=== PATIENT | male | born 1945 | race Caucasian/White ===

== ENCOUNTER → 2017-08-05 | Outpatient (CLI) | payer MEDICARE | END | disposition home or self-care (01) | LOC: PCVCCLINIC 13:33 | DX: I42.9 Cardiomyopathy, unspecified (principal); I48.0 Paroxysmal atrial fibrillation; I10 Essential (primary) hypertension; R60.9 Edema, unspecified; R94.31 Abnormal electrocardiogram [ECG] [EKG]; Z79.899 Other long term (current) drug therapy; Z79.4 Long term (current) use of insulin; Z87.891 Personal history of nicotine dependence | CPT/HCPCS: 36415; 93005; G0463 ==

== ENCOUNTER → 2017-08-14 | Outpatient (CLI) | payer MEDICARE | END | disposition home or self-care (01) | LOC: PCVCCLINIC 14:09 | DX: E11.9 Type 2 diabetes mellitus without complications (principal); Z79.4 Long term (current) use of insulin | CPT/HCPCS: 36415 ==

== ENCOUNTER → 2017-08-26 | Outpatient (CLI) | payer MEDICARE | END | disposition home or self-care (01) | LOC: PCVCCLINIC 10:01 | DX: I48.91 Unspecified atrial fibrillation (principal); E78.00 Pure hypercholesterolemia, unspecified; I42.9 Cardiomyopathy, unspecified; R94.31 Abnormal electrocardiogram [ECG] [EKG]; R60.9 Edema, unspecified; Z79.899 Other long term (current) drug therapy | CPT/HCPCS: 36415; 93005; G0463 ==

== ENCOUNTER → 2017-11-25 | Outpatient (CLI) | payer MEDICARE | END | disposition home or self-care (01) | LOC: PCVCIMAG 10:12 | DX: I48.0 Paroxysmal atrial fibrillation (principal); I42.9 Cardiomyopathy, unspecified; R60.9 Edema, unspecified; I48.91 Unspecified atrial fibrillation; R60.0 Localized edema; Z79.84 Long term (current) use of oral hypoglycemic drugs; Z87.891 Personal history of nicotine dependence | CPT/HCPCS: 93005; 93306; G0463 ==

== ENCOUNTER → 2017-12-02 | Outpatient (CLI) | payer MEDICARE | END | disposition home or self-care (01) | LOC: PCVCCLINIC 10:42 | DX: I48.0 Paroxysmal atrial fibrillation (principal); E11.9 Type 2 diabetes mellitus without complications; E78.00 Pure hypercholesterolemia, unspecified | CPT/HCPCS: 36415 ==

== ENCOUNTER → 2017-12-05 | Outpatient (CLI) | payer MEDICARE | END | disposition home or self-care (01) | LOC: PCVCIMAG 16:43 | DX: I65.23 Occlusion and stenosis of bilateral carotid arteries (principal); R42 Dizziness and giddiness; R55 Syncope and collapse | CPT/HCPCS: 93880 ==

== ENCOUNTER → 2018-03-31 | Outpatient (CLI) | payer MEDICARE | END | disposition home or self-care (01) | LOC: PCVCCLINIC 11:30 | PROVIDERS: ATTEND Internal Medicine Cardiovascular Disease | DX: I48.0 Paroxysmal atrial fibrillation (principal); R55 Syncope and collapse; I42.9 Cardiomyopathy, unspecified; E11.22 Type 2 diabetes mellitus with diabetic chronic kidney disease; N18.9 Chronic kidney disease, unspecified; Z87.891 Personal history of nicotine dependence; E78.5 Hyperlipidemia, unspecified | CPT/HCPCS: 93005; G0463 ==

== ENCOUNTER → 2018-04-21 | Outpatient (CLI) | payer MEDICARE ==
--- NOTE | 2018-04-21 12:45 | PCVCIMAG ---
APPROVED REPORT Study performed: 04/21/2018 10:10:54 EXAM: Comprehensive 2D, Doppler, and color-flow Echocardiogram Patient Location: Echo lab Room #: 2Status: routine BSA: 1.84 Other Information Study Quality: Good Risk Factors: Cardiac Risk Factors: DM Indications Atrial Fibrillation Syncope Cardiomyopathy PAF 2D Dimensions IVSd: 7.68 (7-11mm)LVOT Diam: 19.44 (18-24mm) LVDd: 51.77 mm PWd: 7.27 (7-11mm)Ascending Ao: 19.75 (22-36mm) LVDs: 44.92 (25-40mm) Left Atrium: 43.95 (27-40mm) Aortic Root: 20.09 mm LV Single Plane 4CH: 41.40 % LV Single Plane 2CH: 32.89 % Biplane EF: 38.0 % Volumes Left Atrial Volume (Systole) Single Plane 4CH: 93.11 mLSingle Plane 2CH: 64.82 mL Biplane LA Volume: 81.00 mLLA ESV Index: 44.00 mL/m2 Aortic Valve AoV Peak Arya.: 1.49 m/s AO Peak Gr.: 8.85 mmHgLVOT Max P.15 mmHg LVOT Max V: 0.54 m/s JENNIFER Vmax: 1.07 cm2 Mitral Valve MV E Max Arya.: 0.87 m/s MV PHT: 75.98 ms MVA (PHT): 2.90 cm2 IVRT: 74.97 ms TDI E/Lateral E': 17.40E/Medial E': 21.75 Medial E' Arya.: 0.04 m/s Lateral E' Arya.: 0.05 m/s Pulmonary Valve PV Peak Arya.: 0.88 m/sPV Peak Gr.: 3.12 mmHg Tricuspid Valve TR Peak Arya.: 3.39 m/s TR Peak Gr.: 45.92 mmHg TV Vmax: 0.65 m/sPA Pressure: 56.00 mmHg Left Ventricle The left ventricle is normal size. There is normal LV segmental wall motion. There is normal left ventricular wall thickness. Left ventricular systolic function is moderate to severely decreased. LVEF is 35%. Grade II - pseudonormal filling dynamics. Right Ventricle The right ventricle is normal size. The right ventricular systolic function is normal. Atria Left atrium is moderately dilated. Right atrium is moderately dilated. Aortic Valve Aortic valve is trileaflet. Aortic valve leaflets are sclerotic but open well. No aortic regurgitation is present. There is no aortic valvular stenosis. Mitral Valve Mitral valve leaflets are mildly sclerotic. The mitral valve is normal in structure and function. Mild mitral regurgitation. No evidence of mitral valve stenosis. Tricuspid Valve The tricuspid valve is normal in structure. Mild to moderate tricuspid regurgitation with a PA pressure of 53 mmHg. Moderate pulmonary hypertension. Pulmonic Valve The pulmonary valve is normal in structure. Trace pulmonic regurgitation. Great Vessels The aortic root is normal in size. The ascending aorta is normal in size. IVC is mildly dilated and collapses <50% with inspiration. Pericardium There is no pericardial effusion. There is no pleural effusion. <Conclusion> The left ventricle is normal size. There is normal left ventricular wall thickness. Left ventricular systolic function is moderate to severely decreased. Grade II - pseudonormal filling dynamics. The right ventricle is normal size. Left atrium is moderately dilated. Right atrium is moderately dilated. Aortic valve leaflets are sclerotic but open well. Mild mitral regurgitation. Mild to moderate tricuspid regurgitation with a PA pressure of 53 mmHg. Moderate pulmonary hypertension.
== END | disposition home or self-care (01) ==
LOC: PCVCIMAG 13:00
PROVIDERS: ATTEND Internal Medicine Cardiovascular Disease
DX: I08.3 Combined rheumatic disorders of mitral, aortic and tricuspid valves (principal); R94.31 Abnormal electrocardiogram [ECG] [EKG]; I42.9 Cardiomyopathy, unspecified; I48.91 Unspecified atrial fibrillation; R55 Syncope and collapse; E78.00 Pure hypercholesterolemia, unspecified; E11.9 Type 2 diabetes mellitus without complications; N28.9 Disorder of kidney and ureter, unspecified; Z79.84 Long term (current) use of oral hypoglycemic drugs; F32.9 Major depressive disorder, single episode, unspecified; E78.5 Hyperlipidemia, unspecified; Z87.891 Personal history of nicotine dependence; I27.20 Pulmonary hypertension, unspecified
CPT/HCPCS: 93005; 93306; G0463

== ENCOUNTER → 2018-07-01 | Outpatient (CLI) | payer MEDICARE | END | disposition home or self-care (01) | LOC: PCVCCLINIC 11:43 | PROVIDERS: ATTEND Internal Medicine Cardiovascular Disease | DX: I48.0 Paroxysmal atrial fibrillation (principal); I42.0 Dilated cardiomyopathy; I95.1 Orthostatic hypotension; R11.2 Nausea with vomiting, unspecified; E78.00 Pure hypercholesterolemia, unspecified; E11.22 Type 2 diabetes mellitus with diabetic chronic kidney disease; N18.9 Chronic kidney disease, unspecified; I48.2 Chronic atrial fibrillation; Z79.4 Long term (current) use of insulin; Z79.84 Long term (current) use of oral hypoglycemic drugs; Z87.891 Personal history of nicotine dependence | CPT/HCPCS: 93005; G0463 ==

== ENCOUNTER → 2018-07-22 | Outpatient (CLI) | payer MEDICARE ==
--- NOTE | 2018-07-22 12:38 | PCVCIMAG ---
APPROVED REPORT Study performed: 07/22/2018 10:57:20 EXAM: Comprehensive 2D, Doppler, and color-flow Echocardiogram Patient Location: Echo lab Room #: 3Status: routine BSA: 1.82 HR: 63 bpmBP: 114/62 mmHg Rhythm: NSR Other Information Study Quality: Good Risk Factors: Cardiac Risk Factors: Hyperlipidemia, DM Indications Hypotension Atrial Fibrillation Syncope Cardiomyopathy Hx PAF 2D Dimensions IVSd: 10.23 (7-11mm)LVOT Diam: 19.28 (18-24mm) LVDd: 60.71 mm PWd: 10.15 (7-11mm)Ascending Ao: 31.23 (22-36mm) LVDs: 58.81 (25-40mm) Left Atrium: 47.28 (27-40mm) Aortic Root: 18.90 mm LV Single Plane 4CH: 21.75 % LV Single Plane 2CH: 14.49 % Biplane EF: 18.0 % Volumes Left Atrial Volume (Systole) Single Plane 4CH: 87.05 mLSingle Plane 2CH: 68.08 mL Biplane LA Volume: 79.00 mLLA ESV Index: 44.00 mL/m2 Aortic Valve AoV Peak Arya.: 1.17 m/s AO Peak Gr.: 5.54 mmHgLVOT Max P.01 mmHg LVOT Max V: 0.50 m/s JENNIFER Vmax: 1.26 cm2 Mitral Valve E/A Ratio: 4.2 MV Decel. Time: 152.29 ms MV E Max Arya.: 0.89 m/s MV A Arya.: 0.21 m/s IVRT: 133.79 ms TDI E/Lateral E': 17.80E/Medial E': 44.50 Medial E' Arya.: 0.02 m/s Lateral E' Arya.: 0.05 m/s Pulmonary Valve PV Peak Arya.: 0.55 m/sPV Peak Gr.: 1.21 mmHg Tricuspid Valve TR Peak Arya.: 3.65 m/s TR Peak Gr.: 53.41 mmHg TV Vmax: 0.54 m/sPA Pressure: 60.00 mmHg Left Ventricle Left ventricle is dilated. There is global severe hypokinesis of the left ventricle. There is normal left ventricular wall thickness. Left ventricular systolic function is severely decreased. LVEF is 20%. Moderate diastolic dysfunction is present (pseudonormal filling). Right Ventricle The right ventricle is normal size. Right ventricle is moderately hypokinetic. Atria Left atrium is moderately dilated. Right atrium is mildly dilated. Aortic Valve Aortic valve is trileaflet. Mild aortic valve sclerosis. No aortic regurgitation is present. There is no aortic valvular stenosis. Mitral Valve The mitral valve is normal in structure. Mild mitral regurgitation. No evidence of mitral valve stenosis. Tricuspid Valve The tricuspid valve is normal in structure. Moderate tricuspid regurgitation with a PA pressure of 60 mmHg. Moderate pulmonary hypertension. Pulmonic Valve The pulmonary valve is normal in structure. There is no pulmonic valvular regurgitation. Great Vessels The aortic root is normal in size. The ascending aorta is normal in size. Aortic arch is normal in caliber. IVC is normal in size and collapses <50% with inspiration. Pericardium There is no pericardial effusion. There is no pleural effusion. <Conclusion> Left ventricle is dilated. There is normal left ventricular wall thickness. Left ventricular systolic function is severely decreased. Moderate diastolic dysfunction is present (pseudonormal filling). The right ventricle is normal size. Left atrium is moderately dilated. Mild aortic valve sclerosis. Mild mitral regurgitation. Moderate tricuspid regurgitation with a PA pressure of 60 mmHg. Moderate pulmonary hypertension.
== END | disposition home or self-care (01) ==
LOC: PCVCIMAG 13:07
PROVIDERS: ATTEND Internal Medicine Cardiovascular Disease
DX: I08.3 Combined rheumatic disorders of mitral, aortic and tricuspid valves (principal); I48.2 Chronic atrial fibrillation; I42.8 Other cardiomyopathies; I48.0 Paroxysmal atrial fibrillation; E11.9 Type 2 diabetes mellitus without complications; R55 Syncope and collapse; R11.0 Nausea; I95.9 Hypotension, unspecified; E78.5 Hyperlipidemia, unspecified; Z79.84 Long term (current) use of oral hypoglycemic drugs; Z87.891 Personal history of nicotine dependence
CPT/HCPCS: 93005; 93306; G0463

== ENCOUNTER → 2018-07-23 | Outpatient (CLI) | payer MEDICARE | END | disposition home or self-care (01) | LOC: PCVCCLINIC 11:04 | PROVIDERS: ATTEND Internal Medicine Cardiovascular Disease | DX: I48.2 Chronic atrial fibrillation (principal); I48.91 Unspecified atrial fibrillation; I48.0 Paroxysmal atrial fibrillation; E78.00 Pure hypercholesterolemia, unspecified; E78.5 Hyperlipidemia, unspecified; E11.22 Type 2 diabetes mellitus with diabetic chronic kidney disease; N18.9 Chronic kidney disease, unspecified; J44.9 Chronic obstructive pulmonary disease, unspecified; Z88.8 Allergy status to other drugs, medicaments and biological substances; Z87.891 Personal history of nicotine dependence; Z79.4 Long term (current) use of insulin; Z79.899 Other long term (current) drug therapy | CPT/HCPCS: 36415 ==

== ENCOUNTER → 2018-07-29 | Outpatient (CLI) | payer MEDICARE | END | disposition home or self-care (01) | LOC: PCVCCLINIC 13:18 | PROVIDERS: ATTEND Internal Medicine Cardiovascular Disease | DX: E11.9 Type 2 diabetes mellitus without complications (principal); Z88.2 Allergy status to sulfonamides; Z88.8 Allergy status to other drugs, medicaments and biological substances | CPT/HCPCS: 36415 ==

== ENCOUNTER → 2018-08-04 | Outpatient (CLI) | payer MEDICARE | END | disposition home or self-care (01) | LOC: PCVCCLINIC 11:10 | PROVIDERS: ATTEND Internal Medicine Cardiovascular Disease | DX: I42.9 Cardiomyopathy, unspecified (principal); R55 Syncope and collapse; R94.31 Abnormal electrocardiogram [ECG] [EKG]; E78.00 Pure hypercholesterolemia, unspecified; Z79.899 Other long term (current) drug therapy; Z87.891 Personal history of nicotine dependence | CPT/HCPCS: 93005; G0463 ==

== ENCOUNTER → 2018-10-13 | Outpatient (CLI) | payer MEDICARE | END | disposition home or self-care (01) | LOC: PCVCCLINIC 13:40 | PROVIDERS: ATTEND Internal Medicine Cardiovascular Disease | DX: I50.22 Chronic systolic (congestive) heart failure (principal); I48.91 Unspecified atrial fibrillation; R60.9 Edema, unspecified; E78.5 Hyperlipidemia, unspecified; Z88.8 Allergy status to other drugs, medicaments and biological substances | CPT/HCPCS: 93005; G0463 ==

== ENCOUNTER → 2018-12-30 | Outpatient (CLI) | payer MEDICARE ==
--- NOTE | 2018-12-30 10:01 | PCVCIMAG ---
APPROVED REPORT Study performed: 12/30/2018 08:54:29 EXAM: Comprehensive 2D, Doppler, and color-flow Echocardiogram Patient Location: Echo lab Status: routine BSA: 1.77 HR: 70 bpmBP: 104/60 mmHg Rhythm: Atrial Fibrillation Other Information Study Quality: Good Indications Atrial Fibrillation Cardiomyopathy 2D Dimensions IVSd: 11.93 (7-11mm)LVOT Diam: 23.70 (18-24mm) LVDd: 60.62 mm PWd: 7.53 (7-11mm)Ascending Ao: 32.88 (22-36mm) LVDs: 57.08 (25-40mm) Left Atrium: 50.64 (27-40mm) Aortic Root: 25.54 mm LV Single Plane 4CH: 27.76 % LV Single Plane 2CH: 20.49 % Biplane EF: 24.8 % Volumes Left Atrial Volume (Systole) Single Plane 4CH: 71.97 mLSingle Plane 2CH: 58.27 mL LA ESV Index: 42.00 mL/m2 Aortic Valve AoV Peak Arya.: 1.34 m/s AO Peak Gr.: 7.13 mmHgLVOT Max P.36 mmHg LVOT Max V: 0.55 m/s JENNIFER Vmax: 1.80 cm2 Mitral Valve E/A Ratio: 0.9 MV E Max Arya.: 0.82 m/s MV A Arya.: 0.89 m/s Pulmonary Valve PV Peak Gr.: 1.21 mmHg Tricuspid Valve TR Peak Arya.: 3.10 m/s TR Peak Gr.: 50.28 mmHg Left Ventricle Left ventricle is dilated. There is normal LV segmental wall motion. There is normal left ventricular wall thickness. Left ventricular ejection fraction is severely decreased. LVEF is 25%. This study is not technically sufficient to allow evaluation of the LV diastolic function due to atrial fibrillation. Right Ventricle The right ventricle is normal size. The right ventricular systolic function is normal. Device lead is present in the right ventricle. Atria Left atrium is mildly dilated. Right atrium is dilated. A pacemaker is seen in the right atrium consistent with history. Aortic Valve The aortic valve is normal in structure. No aortic regurgitation is present. There is no aortic valvular stenosis. Mitral Valve The mitral valve is normal in structure. Mild mitral regurgitation. No evidence of mitral valve stenosis. Tricuspid Valve The tricuspid valve is normal in structure. Mild tricuspid regurgitation. Pulmonary artery pressure is 57mmHg. Pulmonic Valve The pulmonary valve is normal in structure. There is no pulmonic valvular regurgitation. Great Vessels The aortic root is normal in size. IVC is normal in size and collapses >50% with inspiration. Pericardium There is no pericardial effusion. <Conclusion> Left ventricle is dilated. Left ventricular ejection fraction is severely decreased. The right ventricle is normal size. Device lead is present in the right ventricle. Left atrium is mildly dilated. The aortic valve is normal in structure. Mild mitral regurgitation. Mild tricuspid regurgitation. Pulmonary artery pressure is 57mmHg.
== END | disposition home or self-care (01) ==
LOC: PCVCIMAG 08:45
PROVIDERS: ATTEND Internal Medicine Cardiovascular Disease
DX: I08.1 Rheumatic disorders of both mitral and tricuspid valves (principal); Z88.8 Allergy status to other drugs, medicaments and biological substances
CPT/HCPCS: 93005; 93306; G0463

== ENCOUNTER → 2019-04-14 | Outpatient (CLI) | payer MEDICARE | END | disposition home or self-care (01) | LOC: PCVCCLINIC 10:30 | PROVIDERS: ATTEND Internal Medicine Cardiovascular Disease | DX: I42.0 Dilated cardiomyopathy (principal); R55 Syncope and collapse; I48.91 Unspecified atrial fibrillation; K21.9 Gastro-esophageal reflux disease without esophagitis; I50.9 Heart failure, unspecified; N18.9 Chronic kidney disease, unspecified; E78.5 Hyperlipidemia, unspecified; Z88.8 Allergy status to other drugs, medicaments and biological substances; Z79.899 Other long term (current) drug therapy; Z79.84 Long term (current) use of oral hypoglycemic drugs; Z87.891 Personal history of nicotine dependence | CPT/HCPCS: 93005; G0463 ==